=== PATIENT | male | born 1985 | race Caucasian/White ===

== ENCOUNTER 2016-11-07 05:30 | Emergency (ER) | payer SELFPAY ==
[~2016-11-07] VITALS: Ht 182.9 cm; Wt 103.4 kg
[2016-11-07 05:36] VITALS: BP 122/72
[2016-11-07] MEDS ORDERED: HYDROCODONE/APAP 5/325MG 1 EACH TABLET ONE (06:23)
[2016-11-07] MEDS ORDERED: LIDOCAINE VISCOUS 2% UD 15 ML UDC ONE (06:23)
[2016-11-07] MEDS ORDERED: LIDOCAINE VISCOUS 2% UD 15 ML UDC MM ONE (06:30)
[2016-11-07] MEDS ORDERED: HYDROCODONE/APAP 5/325MG 1 EACH TABLET PO ONE (06:30)
== END 2016-11-07 07:10 | disposition home or self-care (01) ==
LOC: ER 05:31
DX: J02.9 Acute pharyngitis, unspecified (principal); J06.9 Acute upper respiratory infection, unspecified
CPT/HCPCS: 87880; 99283; A4606; Z7610; 86403-TC